=== PATIENT | female | born 1975 | race Hispanic/Latino ===

== ENCOUNTER → 2022-12-10 | Outpatient (CLI) | payer BC ==
[~2022-12-10] MED LIST: IOHEXOL-350 75 ML VIAL IV ONE
== END | disposition home or self-care (01) ==
LOC: RAH 09:45
PROVIDERS: ATTEND Nurse Practitioner Family
DX: K76.89 Other specified diseases of liver (principal); R93.2 Abnormal findings on diagnostic imaging of liver and biliary tract
CPT/HCPCS: 74170; Q9967

== ENCOUNTER → 2023-01-16 | Outpatient (CLI) | payer BC | END | disposition home or self-care (01) | LOC: RAH 08:23 | PROVIDERS: ATTEND Obstetrics & Gynecology | DX: Z12.31 Encounter for screening mammogram for malignant neoplasm of breast (principal) | CPT/HCPCS: 77067 ==

== ENCOUNTER 2024-05-23 09:25 | Emergency (ER) | payer BC, OTHER ==
[~2024-05-23] VITALS: Ht 152.4 cm; Wt 61.2 kg
[2024-05-23 10:04] LABS: BASOPHILS # (AUTO) 0.02 K/uL (0.00-0.20); BASOPHILS % (AUTO) 0.3 % (0.0-5.0); EOSINOPHILS # (AUTO) 0.14 K/uL (0.00-0.70); EOSINOPHILS % (AUTO) 2.3 % (0.0-8.0); HEMATOCRIT 41.3 % (36-48); IMMATURE GRANULOCYTE ABSOLUTE 0.02 K/uL (0-1); LYMPHOCYTES # (AUTO) 2.3 K/uL (1.0-4.8); LYMPHOCYTES % (AUTO) 37.9 % (21.0-51.0); MEAN CORPUSCULAR HEMOGLOBIN 31.3 pg (27.0-33.0); MEAN CORPUSCULAR HGB CONC 33.7 g/dL (32.0-36.0); MONOCYTES # (AUTO) 0.4 K/uL (0.1-1.0); MONOCYTES % (AUTO) 6.7 % (3.0-13.0); NEUTROPHILS # (AUTO) 3.2 K/uL (1.8-7.7); NEUTROPHILS % (AUTO) 52.5 % (40.0-77.0); PLATELET COUNT (AUTO) 205 K/uL (130-400); RED BLOOD CELL COUNT(AUTO) 4.44 MIL/uL (4.00-5.50); RED CELL DISTRIBUTION WIDTH 12.9 % (11.0-15.5); WHITE BLOOD COUNT (AUTO) 6.1 K/uL (4.8-10.8)
[2024-05-23] MEDS: mecliZINE HCL 25 MG TABLET PO ONE (10:08)
[2024-05-23] MEDS: LACTATED RINGERS 1000ML 1,000 ML IV ONE (10:08)
[2024-05-23 10:16] LABS: CREATININE 0.8 mg/dL (0.5-1.0); POTASSIUM 4.1 mmol/L (3.5-5.1)
[2024-05-23 10:17] LABS: INR 0.98 (0.85-1.15); PROTHROMBIN TIME 10.4 SEC (9.6-11.6)
[2024-05-23 10:18] LABS: APPEARANCE,URINE CLEAR (CLEAR); BILIRUBIN,URINE NEGATIVE (NEGATIVE); COLOR,URINE COLORLESS (YELLOW); GLUCOSE, URINE (UA) NEGATIVE (NEGATIVE); KETONES,URINE NEGATIVE (NEGATIVE); LEUKOCYTE ESTERASE ,URINE NEGATIVE Leu/uL (NEGATIVE); NITRATE,URINE NEGATIVE (NEGATIVE); OCCULT BLOOD,URINE NEGATIVE (NEGATIVE); PROTEIN,URINE NEGATIVE (NEGATIVE); UROBILINOGEN,URINE 0.2 mg/dL (0.2-1.0)
[2024-05-23 10:19] LABS: PARTIAL THROMBOPLASTIN TIME 29.1 SEC (26.3-35.5)
[2024-05-23 10:22] LABS: MAGNESIUM 2.1 mg/dL (1.80-2.40)
--- NOTE | 2024-05-23 10:50 | HMCIMG ---
Exam Type: CHEST 1VW Clinical Information: vertigo Comparison: None Findings: The lungs are clear of infiltrates. The heart is enlarged. Bony and soft tissue structures of the chest wall are unremarkable. IMPRESSION: Cardiomegaly. Clear lungs.
[2024-05-23 10:52] LABS: B-TYPE NATRIURETIC PEPTIDE 46 pg/mL (0-100)
[2024-05-23 10:53] LABS: ADD UA MICROSCOPIC NO
[2024-05-23] MEDS ORDERED: AMOX1TAB16 PO (11:31)
[2024-05-23] MEDS ORDERED: LORA10TA7 PO (11:31)
[2024-05-23] MEDS ORDERED: FLUT16H NS (11:31)
[2024-05-23] MEDS ORDERED: MECL-226 PO (11:31)
--- NOTE | 2024-05-23 11:35 | ERN ---
General Chief Complaint: Dizzy/Light Headed Stated Complaint: DIZZINESS, HEADACHE Time Seen by MD: 09:27 Source: patient History of Present Illness Initial Comments In his is a 48-year-old female coming in to be evaluated for dizziness. Sensation the dizzy in his began one week ago. Has progressively gotten worse. She states that the dizziness is exacerbated with turning of her head. When she was stays still she states she was not dizzy. Allergies: Coded Allergies: No Known Drug Allergies (Unverified Allergy, Unknown, 05/23/24) Past Medical History Past Medical History: Hypothyroid Past Surgical History: Hysterectomy ROS Dictation CONSTITUTIONAL: No chills, no fever, no weakness, no diaphoresis, no malaise. HEAD/FACE: No signs of trauma. EENT: No eye pain, no blurred vision, no tearing, no double vision, no ear pain, no ear discharge, no nose pain, no nasal congestion, no throat pain, no throat swelling, no mouth pain. RESPIRATORY: No cough, no orthopnea, no SOB, no stridor, no wheezing. CARDIOVASCULAR: No chest pain, no edema, no palpitations, no syncope. GASTROINTESTINAL/ABDOMINAL: No abdominal pain, no constipation, no diarrhea, no nausea, no vomiting. GENITOURINARY: No abnormal discharge, no dysuria, no frequent urination, no hematuria. No complaints of pain in the genitals. MUSCULOSKELETAL: No back pain, no gout, no joint pain, no joint swelling, no muscle pain, no muscle stiffness, no neck pain. INTEGUMENTARY: No change in color, no change in hair/nails, no dryness, no lesion, no lumps, no rash. NEUROLOGICAL/PSYCH: No anxiety, not depressed, no emotional problem, no headache, no numbness, no pre-existing deficit, no history of seizures, no tremors, no weakness. HEMATOLOGIC/LYMPHATIC: Not anemic, no history of blood clots, no apparent bleeding, no bruising, glands not swollen. All Systems Negative, Except as Noted. Physical Exam Physical Exam Dictation VITAL SIGNS: Reviewed. GENERAL APPEARANCE: Alert, oriented x3, no acute distress, obese. HEAD AND FACE: Non-traumatic. EYES: PERRL, pink conjunctivas, eyelid no trauma, anterior chamber clear. EARS: Pinnas intact and no signs of trauma or erythema. Ear canals clear and no discharge. TMs erythema. NOSE: No discharge, no bleeding. Nasal turbinate swelling bilateral OROPHARYNX: Mouth normal, teeth no caries, tongue pink. Pharynx erythema, with cobblestoning. Tonsils no exudates, no abscesses noted. Mucous membrane moist. NECK: Supple, non-tender, no thyromegaly, no masses, no JVD, no bruits. BREAST: Deferred. CHEST: No tenderness, no crepitus, no paradoxical movement, no retractions. LUNGS: Clear, well-ventilated, symmetric, no rales, no wheezing, no rhonchi, no stridor, good breath sounds bilaterally. HEART: Regular rate, regular rhythm, no murmur, no gallops. VASCULAR: No peripheral edema. ABDOMEN: Soft, positive bowel sounds, nondistended, no guarding, nontender, no rebound, no masses no hepatomegaly, no splenomegaly, no Mendez's sign, no hernias. RECTAL: Deferred. GENITAL: Deferred. NEUROLOGICAL: Normal speech, gross motor function intact, gross sensory function intact. MUSCULOSKELETAL: Neck nontender, full range of motion, back nontender, full range of motion. EXTREMITIES: Nontender, full range of motion. SKIN: Color pink, dry, no turgor, no rash, no lacerations, no abrasions, no contusions. LYMPHATICS: Deferred. Results Laboratory and Microbiology Lab and Micro Result Laboratory Tests Test 05/23/24 09:46 05/23/24 10:00 White Blood Count 6.1 K/uL (4.8-10.8) Red Blood Count 4.44 MIL/uL (4.00-5.50) Hemoglobin 13.9 g/dL (12.0-16.0) Hematocrit 41.3 % (36-48) Mean Corpuscular Volume 93.0 fL (79-99) Mean Corpuscular Hemoglobin 31.3 pg (27.0-33.0) Mean Corpuscular Hemoglobin Concent 33.7 g/dL (32.0-36.0) Red Cell Distribution Width 12.9 % (11.0-15.5) Platelet Count 205 K/uL (130-400) Mean Platelet Volume 10.8 fL (7.5-10.5) H Immature Granulocyte % (Auto) 0.3 % (0-1) Neutrophils (%) (Auto) 52.5 % (40.0-77.0) Lymphocytes (%) (Auto) 37.9 % (21.0-51.0) Monocytes (%) (Auto) 6.7 % (3.0-13.0) Eosinophils (%) (Auto) 2.3 % (0.0-8.0) Basophils (%) (Auto) 0.3 % (0.0-5.0) Neutrophils # (Auto) 3.2 K/uL (1.8-7.7) Lymphocytes # (Auto) 2.3 K/uL (1.0-4.8) Monocytes # (Auto) 0.4 K/uL (0.1-1.0) Eosinophils # (Auto) 0.14 K/uL (0.00-0.70) Basophils # (Auto) 0.02 K/uL (0.00-0.20) Absolute Immature Granulocyte (auto 0.02 K/uL (0-1) Nucleated Red Blood Cells 0.0 % (0.0-0.19) Prothrombin Time 10.4 SEC (9.6-11.6) Prothromb Time International Ratio 0.98 (0.85-1.15) Activated Partial Thromboplast Time 29.1 SEC (26.3-35.5) Sodium Level 138 mmol/L (136-145) Potassium Level 4.1 mmol/L (3.5-5.1) Chloride Level 103 mmol/L (101-111) Carbon Dioxide Level 29 mmol/L (21-32) Blood Urea Nitrogen 12 mg/dL (7-18) Creatinine 0.8 mg/dL (0.5-1.0) Glomerular Filtration Rate Calc 91 mL/min (>90) Random Glucose 97 mg/dL (70-105) Total Calcium 9.0 mg/dL (8.5-10.1) Magnesium Level 2.10 mg/dL (1.80-2.40) Total Creatine Kinase 56 U/L (21-232) Troponin I High Sensitivity 19 ng/L (4-50) B-Type Natriuretic Peptide 46 pg/mL (0-100) Urine Color COLORLESS (YELLOW) Urine Appearance CLEAR (CLEAR) Urine pH 6.0 (5.0-8.0) Urine Specific [place] 1.007 (1.001-1.031) Urine Protein NEGATIVE mg/dL (NEGATIVE) Urine Glucose (UA) NEGATIVE mg/dL (NEGATIVE) Urine Ketones NEGATIVE mg/dL (NEGATIVE) Urine Occult Blood NEGATIVE (NEGATIVE) Urine Nitrate NEGATIVE (NEGATIVE) Urine Bilirubin NEGATIVE mg/dL (NEGATIVE) Urine Urobilinogen 0.2 mg/dL (0.2-1.0) Urine Leukocyte Esterase NEGATIVE Storm/uL Urine HCG, Qualitative NEGATIVE (NEGATIVE) Labs Reviewed?: Yes EKG/XRAY/US/CT/MRI EKG Comment 05/23/2024 time 10:00 Ventricular rate 47 Sinus bradycardia ID [address] wave elevation or depression X-RAY Comment [address] [place] [address] IMAGING REPORT Signed PATIENT: EDMUND QUINTERO MR#: [id number] : 1975 SEX: F AGE: 48 LOCATION: [facility] ORDER 3 STATUS: [facility] REPORT#: [id number] SERVICE REASON: vertigo ORDERING PHYSICIAN: MICAH MALONE MD PROCEDURE: CXR1VW - CHEST 1VW Exam Type: CHEST 1VW Clinical Information: vertigo Comparison: None Findings: The lungs are clear of infiltrates. The heart is enlarged. Bony and soft tissue structures of the chest wall are unremarkable. IMPRESSION: Cardiomegaly. Clear lungs. DICTATED BY: TINO ANGELA MD DATE: 05/23/24 1047 ELECTRONICALLY SIGNED BY: TINO ANGELA MD DATE: 05/23/24 1050 MDM MDM: Differential diagnosis: Vertigo, sinusitis, my earlier congestion, otitis media, dehydration, UTI, Rationale: Tests considered and ordered secondary to shared decision making include: Previous outside records reviewed: Old ER visits. Risk of complication and/or morbidity or mortality of patient management: None Medications-Per medication reconciliation Patient is a 48-year-old female coming in to be evaluated for dizziness. On physical exam patient does have bilateral tympanic membrane congestion with the erythema. Nasal turbinate swelling more pronounced in the left [place]. Oropharynx erythema with drainage. Patient received IV fluids as well as medication for dizziness states she feels much better. Patient will be discharged in stable condition with a diagnosis of sinusitis. Did advised her appropriate follow up with PCP and/or ENT in 1-2 weeks. Patient does state that she runs a lot this could explain why her heart rate she was Brabycardic. ED Course Orders Procedure Category Date Status Time Cbc With Differential LAB 05/23/24 Complete 09:52 Prothrombin Time With LAB 05/23/24 Complete INR 09:52 B-Type Natriuretic LAB 05/23/24 Complete Peptide 09:52 Chest 1vw RAD 05/23/24 Resulted 09:52 12 Lead Ekg Tracing- EKG 05/23/24 Logged Technical 09:52 Lactated Ringers PHA 05/23/24 Complete 1000ml (Lactated 10:00 Magnesium LAB 05/23/24 Complete 09:52 Creatine Kinase, Total LAB 05/23/24 Complete 09:52 Troponin I High LAB 05/23/24 Complete Sensitivity 09:52 Urinalysis Profile LAB 05/23/24 Complete 09:52 Partial LAB 05/23/24 Complete Thromboplastin Time 09:52 Basic Metabolic Panel LAB 05/23/24 Complete 09:52 Meclizine Hcl 25 Mg PHA 05/23/24 Complete (Antivert 25 Mg) 10:00 ,Urine Test LAB 05/23/24 Complete 10:41 Current Medications Medications (Trade) Dose Ordered Sig/Sheron Route PRN Reason Start Time Stop Time Status Last Admin Dose Admin Lactated Ringer's 1,000 ml @ 0 mls/hr ONCE ONCE IV 05/23/24 10:00 05/23/24 10:01 DC 05/23/24 10:08 Meclizine HCl (ANTIvert 25 mg) 25 mg ONCE ONCE PO 05/23/24 10:00 05/23/24 10:01 DC 05/23/24 10:08 Vital Signs Date Time Temp Pulse Resp B/P (MAP) Pulse Ox O2 Delivery O2 Flow Rate FiO2 05/23/24 10:51 97.7 45 15 105/56 100 Room Air* 0 21 05/23/24 09:51 98.1 46 18 112/61 100 Room Air* 0 21 05/23/24 09:27 98.1 50 16 135/80 100 Room Air 0 DX & DISP Disposition: Discharge Departure Impression: Primary Impression: Sinusitis Additional Impression: Bradycardia Condition: Stable Scripts Loratadine (Loratadine) 10 Mg Tablet 1 TAB PO DAILY for allergy symptoms for 30 Days, #30 TAB 0 Refills Prov: MICAH MALONE MD 05/23/24 Fluticasone Propionate (Flonase Nasal [place]) 50 Mcg/Actuation [place] 2 SPRAY NS DAILY for 30 Days, #16 GM 0 Refills Prov: MICAH MALONE MD 05/23/24 Meclizine HCl (Meclizine HCl) 12.5 Mg Tablet 1 TAB PO TID for dizziness for 5 Days, #15 TAB 0 Refills Prov: MICAH MALONE MD 05/23/24 Amoxicillin/Potassium Clav (Amox Tr-K Clv 875-125 mg Tab) 875 Mg-125 Mg Tablet 1 TAB PO BID for 10 Days, #20 TAB 0 Refills Prov: MICAH MALONE MD 05/23/24 Additional Instructions: FOLLOW-UP WITH PRIMARY CARE PROVIDER IN 1 TO 2 DAYS. TAKE MEDICATIONS DIRECTED HERE IN THE EMERGENCY ROOM. OKAY TO CONTINUE HOME MEDICATIONS UNLESS OTHERWISE DISCUSSED DURING YOUR VISIT IN THE EMERGENCY ROOM TODAY. RETURN TO YOUR NEAREST EMERGENCY ROOM IF SYMPTOMS WORSEN OR IF THERE IS NO IMPROVEMENT. CALL 911 IF YOU NEED IMMEDIATE ASSISTANCE. TAKE TYLENOL [id number] NEEDED AND IF NO CONTRAINDICATIONS ARE PRESENT. INCREASE ORAL HYDRATION. A WOUND CULTURE OR URINE CULTURE WAS ORDERED HERE IN THE EMERGENCY ROOM DEPARTMENT PLEASE FOLLOW-UP WITH PRIMARY CARE PROVIDER AND ADVISE THEM TO GET REPEAT PORTS FROM OUR FACILITY. IF YOU HAD ANY CRISTINA WRAP/SPLINTS THAT WERE APPLIED HERE, PLEASE DO NOT REMOVE THEM UNTIL YOU SEE YOUR PRIMARY CARE OR SPECIALTY. Referrals: Referrals: ATIYA PARNELL PA-C (PCP) Time of Disposition: 11:30 MICAH MALONE MD May 23, 2024 11:35
[2024-05-23] MEDS: dexaMETHasone SOD PHOSPHATE 4 MG/ML 1ML VIAL IVP ONE (11:49)
[2024-05-23 12:00] VITALS: BP 109/60; PULSE 51; RESP 20; TEMP 98.1; O2SAT 100
--- NOTE | 2024-05-23 13:09 | EKG ---
[facility] Test Date: 2024-05-23 Test Time: 10:00:54 Pat Name: EDMUND QUINTERO Department: [facility] Room: Gender: F Radiological Health Specialist: [id number] : 1975 Requested By: MICAH MALONE Order Number: [id number] Reading MD: Serge Bedolla Measurements Intervals Christine Rate: 47 P: 25 WV: 131 QRS: -18 QRSD: 93 T: 19 QT: 471 QTc: 415 Interpretive Statements Sinus bradycardia Low voltage, precordial leads No previous ECG available for comparison Electronically Signed On 05-23-2024 13:37:11 CDT by Serge Bedolla Please click the below link to view image of tracing.
== END 2024-05-23 11:58 | disposition home or self-care (01) ==
LOC: EDH 09:25
DX: J32.9 Chronic sinusitis, unspecified (principal); R00.1 Bradycardia, unspecified; E03.9 Hypothyroidism, unspecified; Z90.710 Acquired absence of both cervix and uterus
CPT/HCPCS: 99285; 96374; 96361; 71045; 82550; 83735; 84484; 80048; 83880; 85025; 85610; 85730; 81003; 81025; 36415; 93005; J1100; J7120

== ENCOUNTER → 2025-02-01 | Outpatient (CLI) | payer OTHER ==
[~2025-02-01] MED LIST changes: +AMOX1TAB16 PO; +FLUT16H NS; -IOHEXOL-350 75 ML VIAL IV ONE; +LORA10TA7 PO; +MECL-226 PO
== END | disposition home or self-care (01) ==
LOC: RAH 10:03
PROVIDERS: ATTEND Obstetrics & Gynecology
DX: Z12.31 Encounter for screening mammogram for malignant neoplasm of breast (principal); R92.333 Mammographic heterogeneous density, bilateral breasts
CPT/HCPCS: 77067